=== PATIENT | female | born 2000 | race Caucasian/White ===

== ENCOUNTER 2022-12-02 22:18 | Emergency (ER) | payer MEDICAID ==
[2022-12-02] MEDS ORDERED: Sodium Chloride 0.9% 1,000 ML IV ONE ×2 (22:31)
[2022-12-02] MEDS ORDERED: Sodium Chloride 0.9% 10 ML Syringe FLUSH PRN (22:31)
[2022-12-02] MEDS ORDERED: Sodium Chloride 0.9% 2.5 ML Syringe FLUSH PRN (22:31)
[2022-12-02 23:04] LABS: BASOPHILS PERCENT AUTO 0.2 % (0.0-1.5); EOSINOPHILS ABSOLUTE AUTO 0.4 K/uL (0.0-0.7); EOSINOPHILS PERCENT AUTO 3.2 % (0.0-7.0); HEMATOCRIT 26.7 % (36.0-46.0); HEMOGLOBIN 8.2 g/dL (12.0-16.0); LYMPHOCYTES ABSOLUTE AUTO 1.9 K/uL (0.6-2.4); LYMPHOCYTES PERCENT AUTO 15.3 % (16.0-40.0); MEAN CORPUSCULAR HEMOGLOBIN 23.7 pg (27.0-32.0); MEAN CORPUSCULAR HGB CONC 30.7 g/dL (31.0-37.0); MEAN CORPUSCULAR VOLUME 77.2 fL (80.0-98.0); MONOCYTES ABSOLUTE AUTO 0.7 K/uL (0.0-0.8); MONOCYTES PERCENT AUTO 5.6 % (0.0-15.0); NEUTROPHILS ABSOLUTE AUTO 9.3 K/uL (1.4-5.7); NEUTROPHILS PERCENT AUTO 75.7 % (48.0-80.0); NRBC ABSOLUTE 0 K/uL; PLATELET COUNT,PLT 211 K/uL (150-400); RED BLOOD CELL COUNT 3.46 M/uL (4.30-5.90); WHITE BLOOD CELL COUNT,WBC 12.32 K/uL (4.0-11.0)
[2022-12-02 23:26] LABS: A/G RATIO 0.6 (0.9-1.6); ALBUMIN 2.3 g/dL (3.4-5.0); BILIRUBIN TOTAL 0.2 mg/dL (0.2-1.0); CARBON DIOXIDE,CO2 23.9 mmol/L (21.0-32.0); CREATININE 0.7 mg/dL (0.6-1.0); EST CRCL DRUG DOSING (CG) 120.01 mL/min; POTASSIUM,K 3.7 mmol/L (3.5-5.1); PROTEIN TOTAL,TP 5.9 g/dL (6.4-8.2)
[2022-12-02] MEDS ORDERED: Ketorolac 30 MG/ML SDV IVPUSH ONE (23:40)
== END 2022-12-03 00:33 | disposition home or self-care (01) ==
LOC: MW.ED 22:18
DX: O99.355 Diseases of the nervous system complicating the puerperium (principal); G97.1 Other reaction to spinal and lumbar puncture
CPT/HCPCS: 36415; 80053; 85025; 96361; 96374; 99284; J1885; J3490; J7030

== ENCOUNTER 2022-12-04 15:43 | Emergency (ER) | payer MEDICAID ==
[2022-12-04] MEDS ORDERED: Sodium Chloride 0.9% 1,000 ML IV ONE (17:35)
[2022-12-04] MEDS ORDERED: ceFAZolin 1 GM Vial ONE (18:14)
[2022-12-04] MEDS ORDERED: Ketorolac 30 MG/ML SDV ONE (18:15)
[2022-12-04] MEDS ORDERED: Ondansetron 4 MG/2 ML SDV ONE (18:15)
[2022-12-04] MEDS ORDERED: Ketorolac 30 MG/ML SDV IVPUSH ONE (18:37)
[2022-12-04] MEDS ORDERED: ceFAZolin 1 GM Vial IV ONE (18:38)
[2022-12-04] MEDS ORDERED: Ondansetron 4 MG/2 ML SDV IVPUSH ONE (18:38)
== END 2022-12-04 19:20 | disposition home or self-care (01) ==
LOC: MW.ED 15:43
DX: O99.355 Diseases of the nervous system complicating the puerperium (principal); G97.1 Other reaction to spinal and lumbar puncture
CPT/HCPCS: 96361; 96374; 96375; 99283; J0690; J1885; J2405; J7030; 62273; 99284